=== PATIENT | male | born 1960 | race Caucasian/White ===

== ENCOUNTER 2018-12-22 16:38 | Observation (INO) | payer BC ==
[2018-12-22] MEDS ORDERED: Aspirin 81 MG Tab.Chew ONE (16:49)
[2018-12-22] MEDS ORDERED: Aspirin 81 MG Tab.Chew PO ONE (16:53)
--- NOTE | 2018-12-22 17:09 | EDM.PDOC ---
ED HPI GENERAL MEDICAL PROBLEM - General Chief Complaint: Chest Pain Stated Complaint: Chest pain Time Seen by Provider: 12/22/18 16:47 Source of Information: Reports: Patient History Limitations: Reports: No Limitations - History of Present Illness INITIAL COMMENTS - FREE TEXT/NARRATIVE: Patient is a 58-year-old gentleman who presents to the emergency department this afternoon with complaint of left-sided chest pain. Pain described as pinching sensation is isolated to left chest. Patient states that the pain began Thursday morning and has been intermittent for the last 3 days. Lasts several minutes and then resolves spontaneously. Patient also states that he's been quite depressed lately as he is recently going through a divorce. Hasn't been eating or sleeping well. Patient has a history of hypertension and depression and is on blood pressure medicine and antidepression medication. Patient denies any change in medication recently, or any intent to hurt himself. Patient denies fever, shortness of breath, nausea, vomiting, diarrhea , abdominal pain, any trauma, or out of country travel. Onset: Gradual Onset Date: 12/20/18 Duration: Day(s): Location: Reports: Chest Quality: Reports: Other (Pinching sensation) Severity: Mild Improves with: Reports: Other (Spontaneously) Worsens with: Reports: None Context: Reports: Other (At rest). Denies: Trauma Associated Symptoms: Reports: Chest Pain, Loss of Appetite, Malaise. Denies: Cough, Diaphoresis, Fever/Chills, Headaches, Nausea/Vomiting, Shortness of Breath Left Chest Pain Score (Numeric/FACES): 5 - Related Data Allergies Allergy/AdvReac Type Severity Reaction Status Date / Time No Known Drug Allergies Allergy Other Verified 12/22/18 16:51 Home Meds: Home Meds FLUoxetine HCl [Fluoxetine HCl] 40 mg PO DAILY 10/14/18 [History] Ibuprofen 200 mg PO Q4H PRN 10/14/18 [History] Losartan/Hydrochlorothiazide [Losartan-HCTZ 100-25 MG] 1 tab PO DAILY 10/14/18 [ History] Omeprazole 20 mg PO DAILY 10/14/18 [History] amLODIPine Besylate [Amlodipine Besylate] 5 mg PO DAILY 10/14/18 [History] methylPREDNISolone [Methylprednisolone] 4 mg PO DAILY 12/22/18 [History] oxyCODONE 5 - 10 mg PO Q4H PRN 12/22/18 [History] ED ROS GENERAL - Review of Systems Review Of Systems: ROS reveals no pertinent complaints other than HPI. Constitutional: Reports: No Symptoms HEENT: Reports: No Symptoms Respiratory: Reports: No Symptoms Cardiovascular: Reports: Chest Pain Endocrine: Reports: No Symptoms GI/Abdominal: Reports: No Symptoms : Reports: No Symptoms Musculoskeletal: Reports: No Symptoms Skin: Reports: No Symptoms Neurological: Reports: No Symptoms Psychiatric: Reports: Anxiety, Depression Hematologic/Lymphatic: Reports: No Symptoms Immunologic: Reports: No Symptoms ED EXAM, GENERAL - Physical Exam Exam: See Below Exam Limited By: No Limitations General Appearance: Alert, WD/WN, No Apparent Distress Eye Exam: Bilateral Eye: Normal Inspection Nose: Normal Inspection, Normal Mucosa, No Blood Throat/Mouth: Normal Inspection, Normal Oropharynx, No Airway Compromise Head: Atraumatic, Normocephalic Neck: Normal Inspection, Supple, Non-Tender Respiratory/Chest: No Respiratory Distress, Lungs Clear, Normal Breath Sounds, No Accessory Muscle Use Cardiovascular: No Murmur, Tachycardia GI/Abdominal: Normal Bowel Sounds, Soft, Non-Tender, No Organomegaly, No Distention, No Abnormal Bruit, No Mass Back Exam: Normal Inspection. No: CVA Tenderness (L), CVA Tenderness (R) Extremities: Normal Inspection, Non-Tender, No Pedal Edema Neurological: Alert, Oriented, Normal Cognition Psychiatric: Depressed Mood Skin Exam: Warm, Dry, Intact, Normal Color, No Rash Lymphatic: No Adenopathy EKG INTERPRETATION EKG Date: 12/22/18 Time: 16:50 Rhythm: Other (Sinus tachycardia) Rate (Beats/Min): 104 Angelica: Normal P-Wave: Present QRS: Normal ST-T: Normal QT: Normal Comparison: NA - No Prior EKG Course - Vital Signs Last Recorded V/S: Last Vital Signs Temp 97.8 F 12/22/18 16:42 Pulse 96 12/22/18 18:52 Resp 12 12/22/18 18:52 BP 137/95 H 12/22/18 18:52 Pulse Ox 94 L 12/22/18 18:52 - Orders/Labs/Meds Orders: Active Orders 24 hr Category Date Time Status EKG Documentation Completion [RC] ASDIRECTED Care 12/22/18 16:53 Active Sodium Chloride 0.9% [Saline Flush] Med 12/22/18 18:19 Active 10 ml FLUSH Q8HR PRN Saline Lock Insert [OM.PC] Routine Oth 12/22/18 18:19 Ordered EKG 12 Lead [EK] Routine Ther 12/22/18 17:02 Stop Req Medication Orders Sodium Chloride (Saline Flush) 10 ml FLUSH Q8HR PRN PRN Reason: keep vein open Last Admin: 12/22/18 19:44 Dose: 10 ml Admin: 12/22/18 18:19 Dose: 10 ml Labs: Laboratory Tests 12/22/18 12/22/18 12/22/18 Range/Units 16:50 16:50 16:50 WBC 7.40 (5.00-10.00) 10^3/uL RBC 5.89 (4.50-6.00) 10^6/uL Hgb 16.8 (13.0-17.0) g/dL Hct 47.5 (40.0-52.0) % MCV 80.6 L (82.0-92.0) fL MCH 28.5 (27.0-31.0) pg MCHC 35.4 (32.0-36.0) g/dL RDW 13.2 (11.5-14.5) % Plt Count 292 (150-400) 10^3/uL MPV 9.3 (7.4-10.4) fL Immature Gran % (Auto) 1.2 (0.0-5.0) % Neut % (Auto) 66.6 (50.0-70.0) % Lymph % (Auto) 17.3 L (20.0-40.0) % [place] % (Auto) 10.8 H (2.0-8.0) % Eos % (Auto) 3.2 H (1.0-3.0) % Baso % (Auto) 0.9 (0.0-1.0) % Immature Gran # (Auto) 0.09 (0.00-0.50) 10^3/uL Neut # (Auto) 4.92 (2.50-7.00) 10^3/uL Lymph # (Auto) 1.28 (1.00-4.00) 10^3/uL [place] # (Auto) 0.80 (0.10-0.80) 10^3/uL Eos # (Auto) 0.24 (0.10-0.30) 10^3/uL Baso # (Auto) 0.07 (0.00-0.10) 10^3/uL PT 10.1 (8.9-11.4) SEC INR 1.0 (0.9-1.1) APTT 25.1 (23.1-31.3) SEC D-Dimer, Quantitative < 100 (<400) ng/mL Sodium 138 (136-145) mmol/L Potassium 3.3 (3.3-5.3) mmol/L Chloride 99 (98-115) mmol/L Carbon Dioxide 24.4 (21.0-32.0) mmol/L Anion Gap 17.9 H (5-15) mmol/L BUN 28 H (6-25) mg/dL Creatinine 1.06 (0.51-1.17) mg/dL Est Cr Clr Drug Dosing 93.26 mL/min Estimated GFR (MDRD) > 60 mL/min Glucose 105 H (75 - 99) mg/dL Calcium 9.1 (8.7-10.3) mg/dL Magnesium 2.2 (1.8-2.4) mg/dL Total Bilirubin 0.8 (0.2-1.0) mg/dL AST 21 (15-37) U/L ALT 41 (12-78) U/L Alkaline Phosphatase 89 (46-116) IU/L Troponin I 0.05 (0.00-0.070) ng/mL Total Protein 7.4 (6.4-8.2) g/dL Albumin 4.12 (3.00-4.80) g/dL Lipase 93 (73-393) U/L Meds: Medications Generic Name Dose Route Start Last Admin Trade Name Freq PRN Reason Stop Dose Admin Sodium Chloride 10 ml 12/22/18 18:19 12/22/18 19:44 Saline Flush FLUSH 10 ml Q8HR PRN Administration keep vein open Discontinued Medications Generic Name Dose Route Start Last Admin Trade Name Freq PRN Reason Stop Dose Admin Aspirin Confirm 12/22/18 16:49 12/22/18 16:55 Aspirin Administered 12/22/18 16:50 Not Given Dose 324 mg .ROUTE .STK-MED ONE Aspirin 324 mg 12/22/18 16:53 12/22/18 16:54 Aspirin PO 12/22/18 16:54 324 mg ONETIME ONE Administration Sodium Chloride 100 mls @ 4 mls/sec 12/22/18 18:20 12/22/18 18:57 Normal Saline IV 12/22/18 18:21 4 mls/sec ASDIRECTED ONE Administration Iopamidol 100 ml 12/22/18 18:20 12/22/18 18:57 Isovue-370 (76%) IV 12/22/18 18:21 100 ml ONETIME ONE Administration Lorazepam 1 mg 12/22/18 18:07 12/22/18 18:19 Ativan IVPUSH 12/22/18 18:08 1 mg ONETIME ONE Administration Lorazepam 1 mg 12/22/18 19:29 12/22/18 19:43 Ativan IVPUSH 12/22/18 19:30 1 mg ONETIME ONE Administration - Radiology Interpretation Free Text/Narrative:: The one view chest x-ray shows cardiomegaly and widened mediastinum. CT chest with IV contrast pending - Re-Assessments/Exams Free Text/Narrative Re-Assessment/Exam: 12/22/18 20:44 Patient afebrile, vital signs stable, anxiety, somewhat relieved. Patient denies any intent to hurt himself. Discussed case with Sherie Parks, and she will admit patient for observation and follow. Departure - Departure Time of Disposition: 20:45 Disposition: Refer to Observation Condition: Fair Clinical Impression: Atypical chest pain, Anxiety Depression Qualifiers: Depression Type: unspecified Qualified Code(s): F32.9 - Major depressive disorder, single episode, unspecified Referrals: Celine Nelson MD [Primary Care Provider] - Forms: ED Department Discharge - My Orders Last 24 Hours: My Active Orders 12/22/18 16:53 EKG Documentation Completion [RC] ASDIRECTED 12/22/18 17:02 EKG 12 Lead [EK] Routine 12/22/18 18:19 Sodium Chloride 0.9% [Saline Flush] 10 ml FLUSH Q8HR PRN Saline Lock Insert [OM.PC] Routine - Assessment/Plan Last 24 Hours: My Active Orders 12/22/18 16:53 EKG Documentation Completion [RC] ASDIRECTED 12/22/18 17:02 EKG 12 Lead [EK] Routine 12/22/18 18:19 Sodium Chloride 0.9% [Saline Flush] 10 ml FLUSH Q8HR PRN Saline Lock Insert [OM.PC] Routine Assessment:: Anxiety, chest pain Plan: Admit for observation to [place]
[2018-12-22 17:34] LABS: ANION GAP 17.9 mmol/L (5-15); CHLORIDE,CL 99 mmol/L (98-115); SODIUM,NA 138 mmol/L (136-145)
[2018-12-22] MEDS ORDERED: LORazepam 2 MG/ML SDV IVPUSH ONE ×2 (18:07→19:29)
--- NOTE | 2018-12-22 18:13 | CR ---
[id number] RAD/RAD Chest PA or AP 1V EXAM: SINGLE VIEW CHEST. INDICATION: CHEST PAIN COMPARISON: NO PREVIOUS SIMILAR EXAM IS AVAILABLE FINDINGS: The mediastinum appears somewhat prominent. Consider a CT chest with IV contrast or even PA and lateral chest if symptoms persist. The lungs are clear and somewhat hyperaerated. The cardiac silhouette is prominent. IMPRESSION: QUESTION OF THORACIC AORTIC PATHOLOGY. CONSIDER CT CHEST WITH IV CONTRAST. APPEARANCE OF AIRWAY DISEASE. BORDERLINE CARDIOMEGALY. Rupert Catalan MD 12/22/18 1785 Thank you for allowing us to participate in the care of your patient.
[2018-12-22] MEDS: Sodium Chloride 0.9% 10 ML Syringe FLUSH PRN ×2 (18:19→19:44)
[2018-12-22] MEDS ORDERED: Sodium Chloride 0.9% 100 ML IV ONE (18:20)
[2018-12-22] MEDS ORDERED: Iopamidol 755 Mg/ML 100 ML Bottle IV ONE (18:20)
--- NOTE | 2018-12-22 20:34 | CT ---
[id number] CT/CTA Chest EXAM: CT ANGIOGRAM CHEST INDICATION: THORACIC AORTIC PATHOLOGY COMPARISON: None. DISCUSSION: The pulmonary arteries are normal in appearance with no emboli identified. There are a few scattered calcified and noncalcified pulmonary nodules scattered throughout the lungs. For example there is a 4 mm noncalcified pulmonary nodule right upper lobe (series 3 image 75). Additionally there is a 4 mm noncalcified pulmonary nodule along the major fissure within the right lower lobe (series 3 image 64). A few additional less than 3 mm pulmonary nodules are seen. No airspace consolidation. No pleural pericardial effusion. The heart is borderline enlarged. Coronary artery disease. No mediastinal or hilar lymphadenopathy. Generalized hypodensity liver consistent with hepatic steatosis. IMPRESSION: 1. No evidence of acute pulmonary embolism. Brian Ratliff DO 12/22/18 2033 Thank you for allowing us to participate in the care of your patient.
[2018-12-22] MEDS ORDERED: Melatonin 3 MG Tab PO PRN (22:20)
[2018-12-22] MEDS: oxyCODONE 5 MG Tab PO PRN (22:36)
[2018-12-23] MEDS ORDERED: LORazepam 0.5 MG Tab PO PRN (01:06)
[2018-12-23] MEDS: oxyCODONE 5 MG Tab PO PRN ×2 (02:54→07:34)
[2018-12-23] MEDS ORDERED: Hydrochlorothiazide 25 MG Tab PO SCH (09:00)
[2018-12-23] MEDS ORDERED: Ibuprofen 200 MG Tab PO PRN (09:38)
[2018-12-23] MEDS ORDERED: oxyCODONE 5 MG Tab PO PRN (09:38)
[2018-12-23] MEDS ORDERED: Losartan 50 MG Tab PO SCH (09:45)
[2018-12-23] MEDS ORDERED: amLODIPine 5 MG Tab PO SCH (09:45)
[2018-12-23] MEDS ORDERED: FLUoxetine 10 MG Cap PO SCH (09:45)
[2018-12-23] MEDS ORDERED: Omeprazole 20 MG Cap.CR PO SCH (09:45)
--- NOTE | 2018-12-23 10:08 | PCM.HP ---
H&P History of Present Illness - General Date of Service: 12/23/18 Admit Problem/Dx: Admission Diagnosis/Problem Admission Diagnosis/Problem Atypical chest pain Source of Information: Patient, Old Records, RN History Limitations: Reports: No Limitations Left Chest Pain Score (Numeric/FACES): 0 Left Knee Pain Score (Numeric/FACES): 7 - Related Data Allergies/Adverse Reactions: Allergies Allergy/AdvReac Type Severity Reaction Status Date / Time No Known Drug Allergies Allergy Other Verified 12/22/18 16:51 Home Medications: Home Meds Ibuprofen 200 mg PO Q4H PRN 10/14/18 [History] Losartan/Hydrochlorothiazide [Losartan-HCTZ 100-25 MG] 1 tab PO DAILY 10/14/18 [ History] Omeprazole 20 mg PO DAILY 10/14/18 [History] amLODIPine Besylate [Amlodipine Besylate] 5 mg PO DAILY 10/14/18 [History] FLUoxetine HCl [Fluoxetine HCl] 40 mg PO DAILY #30 capsule 12/23/18 [Rx] Hydrocodone/Acetaminophen [Hydrocodon-Acetaminophen 5-325] 1 - 2 each PO Q6H # 24 tablet 12/23/18 [Rx] LORazepam [Ativan] 0.5 mg PO Q8H PRN #30 tablet 12/23/18 [Rx] Past Medical History HEENT History: Reports: Impaired Vision Cardiovascular History: Reports: Hypertension Respiratory History: Reports: Sleep Apnea Gastrointestinal History: Reports: None Genitourinary History: Reports: None Musculoskeletal History: Reports: Fracture, Gout Neurological History: Reports: None Psychiatric History: Reports: Anxiety, Depression, Panic Attack Endocrine/Metabolic History: Reports: None Hematologic History: Reports: None Dermatologic History: Reports: None - Infectious Disease History Infectious Disease History: Reports: Chicken Pox, Influenza, Mumps, Shingles - Past Surgical History HEENT Surgical History: Reports: LASIK, Tonsillectomy Cardiovascular Surgical History: Reports: None Respiratory Surgical History: Reports: None GI Surgical History: Reports: Colonoscopy Male Surgical History: Reports: None Endocrine Surgical History: Reports: None Neurological Surgical History: Reports: None Musculoskeletal Surgical History: Reports: Shoulder Surgery Dermatological Surgical History: Reports: None Social & Family History - Family History Cardiac: Reports: None Respiratory: Reports: None GI: Reports: None : Reports: None OBGYN: Reports: None Musculoskeletal: Reports: None Neurological: Reports: Alzheimers Disease (Father ) Psychiatric: Reports: None Endocrine/Metabolic: Reports: None Immunologic: Reports: None Dermatologic: Reports: None Oncologic: Reports: Breast (Mother currently alive, breast cancer) - Tobacco Use Smoking Status *Q: Never Smoker Years of Tobacco use: 6 Packs/Tins Daily: 0.1 Second Hand Smoke Exposure: No - Caffeine Use Caffeine Use: Reports: None - Recreational Drug Use Recreational Drug Use: No H&P Review of Systems - Review of Systems: Review Of Systems: See Below General: Reports: No Symptoms HEENT: Reports: No Symptoms Pulmonary: Reports: No Symptoms Cardiovascular: Reports: Chest Pain. Denies: Palpitations, Lightheadedness, Blood Pressure Problem Gastrointestinal: Reports: Decreased Appetite. Denies: Abdominal Pain, Constipation, Diarrhea Genitourinary: Reports: No Symptoms Musculoskeletal: Reports: Joint Pain, Other (Going left knee pain) Skin: Reports: No Symptoms Psychiatric: Reports: Depression, Mood Lability, Anxiety. Denies: Confusion, Agitation, Suicidal Ideation, Homicidal Ideation Neurological: Reports: Difficulty Walking (Left knee pain due to injury chondral defect). Denies: Confusion Hematologic/Lymphatic: Reports: No Symptoms Immunologic: Reports: No Symptoms Exam - Exam Exam: See Below - Vital Signs Vital Signs: Last Vital Signs Temp 98.6 F 12/23/18 06:25 Pulse 87 12/23/18 06:25 Resp 18 12/23/18 06:25 BP 126/92 H 12/23/18 06:25 Pulse Ox 95 12/23/18 07:00 Weight: 225 lb - Exam Quality Assessment: No: Supplemental Oxygen General: Alert, Oriented. No: Mild Distress, Moderate Distress Neck: Supple Lungs: Clear to Auscultation, Normal Respiratory Effort Cardiovascular: Regular Rate, Regular Rhythm, Normal S1, Normal S2 GI/Abdominal Exam: Soft (Male) Exam: Deferred Rectal (Males) Exam: Deferred Extremities: No: Pedal Edema Peripheral Pulses: 2+: Radial (L), Radial (R) Skin: Warm, Dry, Intact Neurological: Normal Speech, Sensation Intact Neuro Extensive - Mental Status: Alert, Oriented x3, Memory Intact. No: Normal Mood/Affect (Flat affect) Neuro Extensive - Motor, Sensory, Reflexes: CN II-XII Intact Psychiatric: Depressed. No: Agitated, Suicidal Ideation, Homicidal Ideation - Patient Data Lab Results Last 24 hrs: Laboratory Results - last 24 hr 12/22/18 12/22/18 12/22/18 Range/Units 16:50 16:50 16:50 WBC 7.40 (5.00-10.00) 10^3/uL RBC 5.89 (4.50-6.00) 10^6/uL Hgb 16.8 (13.0-17.0) g/dL Hct 47.5 (40.0-52.0) % MCV 80.6 L (82.0-92.0) fL MCH 28.5 (27.0-31.0) pg MCHC 35.4 (32.0-36.0) g/dL RDW 13.2 (11.5-14.5) % Plt Count 292 (150-400) 10^3/uL MPV 9.3 (7.4-10.4) fL Immature Gran % (Auto) 1.2 (0.0-5.0) % Neut % (Auto) 66.6 (50.0-70.0) % Lymph % (Auto) 17.3 L (20.0-40.0) % [place] % (Auto) 10.8 H (2.0-8.0) % Eos % (Auto) 3.2 H (1.0-3.0) % Baso % (Auto) 0.9 (0.0-1.0) % Immature Gran # (Auto) 0.09 (0.00-0.50) 10^3/uL Neut # (Auto) 4.92 (2.50-7.00) 10^3/uL Lymph # (Auto) 1.28 (1.00-4.00) 10^3/uL [place] # (Auto) 0.80 (0.10-0.80) 10^3/uL Eos # (Auto) 0.24 (0.10-0.30) 10^3/uL Baso # (Auto) 0.07 (0.00-0.10) 10^3/uL PT 10.1 (8.9-11.4) SEC INR 1.0 (0.9-1.1) APTT 25.1 (23.1-31.3) SEC D-Dimer, Quantitative < 100 (<400) ng/mL Sodium 138 (136-145) mmol/L Potassium 3.3 (3.3-5.3) mmol/L Chloride 99 (98-115) mmol/L Carbon Dioxide 24.4 (21.0-32.0) mmol/L Anion Gap 17.9 H (5-15) mmol/L BUN 28 H (6-25) mg/dL Creatinine 1.06 (0.51-1.17) mg/dL Est Cr Clr Drug Dosing 93.26 mL/min Estimated GFR (MDRD) > 60 mL/min Glucose 105 H (75 - 99) mg/dL Calcium 9.1 (8.7-10.3) mg/dL Magnesium 2.2 (1.8-2.4) mg/dL Total Bilirubin 0.8 (0.2-1.0) mg/dL AST 21 (15-37) U/L ALT 41 (12-78) U/L Alkaline Phosphatase 89 (46-116) IU/L Troponin I 0.05 (0.00-0.070) ng/mL Total Protein 7.4 (6.4-8.2) g/dL Albumin 4.12 (3.00-4.80) g/dL Lipase 93 (73-393) U/L Result Diagrams: 12/22/18 16:50 12/22/18 16:50 Problem List Initiated/Reviewed/Updated: Yes Orders Last 24hrs: Active Orders 24 hr Category Date Time Status Patient Status [ADT] Routine ADT 12/22/18 20:47 Ordered Cardiac Monitoring [RC] 1900,2300,0300,0700,1100,1500 Care 12/22/18 21:00 Active EKG Documentation Completion [RC] ASDIRECTED Care 12/22/18 16:53 Active Oxygen Therapy [RC] .PRN Care 12/22/18 20:47 Active VTE/DVT Education [RC] PER UNIT ROUTINE Care 12/22/18 20:47 Active Vital Signs [RC] 0700,1100,1500,1900,2300,0300 Care 12/22/18 20:47 Active Regular Diet [DIET] Diet 12/23/18 Breakfast Active FLUoxetine [PROzac] Med 12/23/18 09:45 Active 40 mg PO DAILY Ibuprofen [Motrin] Med 12/23/18 09:38 Active 200 mg PO Q4H PRN LORazepam [Ativan] Med 12/23/18 01:06 Active 0.5 mg PO Q6H PRN Losartan [Cozaar] Med 12/23/18 09:45 Active 100 mg PO DAILY Melatonin Med 12/23/18 21:00 Active 3 mg PO BEDTIME Melatonin Med 12/22/18 22:20 Active 3 mg PO BEDTIME PRN Omeprazole Med 12/23/18 09:45 Active 20 mg PO DAILY Sodium Chloride 0.9% [Saline Flush] Med 12/22/18 18:19 Active 10 ml FLUSH Q8HR PRN amLODIPine [Norvasc] Med 12/23/18 09:45 Active 5 mg PO DAILY hydroCHLOROthiazide Med 12/23/18 09:00 Active 25 mg PO DAILY oxyCODONE Med 12/22/18 22:23 Active 5 mg PO Q4H PRN oxyCODONE Med 12/23/18 09:38 Active 5 mg PO Q4H PRN Saline Lock Insert [OM.PC] Routine Oth 12/22/18 18:19 Ordered Resuscitation Status Routine Resus Stat 12/22/18 20:47 Ordered EKG 12 Lead [EK] Routine Ther 12/22/18 17:02 Stop Req Medication Orders Amlodipine Besylate (Norvasc) 5 mg PO DAILY BRANDIN Fluoxetine HCl (Prozac) 40 mg PO DAILY BRANDIN Hydrochlorothiazide (Hydrochlorothiazide) 25 mg PO DAILY BRANDIN Ibuprofen (Motrin) 200 mg PO Q4H PRN PRN Reason: Other Lorazepam (Ativan) 0.5 mg PO Q6H PRN PRN Reason: Anxiety Last Admin: 12/23/18 06:07 Dose: 0.5 mg Losartan Potassium (Cozaar) 100 mg PO DAILY BRANDIN Melatonin (Melatonin) 3 mg PO BEDTIME BRANDIN Melatonin (Melatonin) 3 mg PO BEDTIME PRN PRN Reason: Sleep Last Admin: 12/22/18 22:35 Dose: 3 mg Omeprazole (Omeprazole) 20 mg PO DAILY BRANDIN Oxycodone HCl (Oxycodone) 5 mg PO Q4H PRN PRN Reason: Pain (moderate 4-6) Last Admin: 12/23/18 07:34 Dose: 5 mg Admin: 12/23/18 02:54 Dose: 5 mg Admin: 12/22/18 22:36 Dose: 5 mg Oxycodone HCl (Oxycodone) 5 mg PO Q4H PRN PRN Reason: Pain Sodium Chloride (Saline Flush) 10 ml FLUSH Q8HR PRN PRN Reason: keep vein open Last Admin: 12/22/18 19:44 Dose: 10 ml Admin: 12/22/18 18:19 Dose: 10 ml Assessment/Plan Comment:: Please use this history and physical also for a discharge summary as the patient will be discharged same-day as H&P History of present illness Roberto is a 58-year-old gentleman who was admitted into observation due to chest pain and anxiety. He was seen and evaluated last night through the ED when he was brought in by a friend complaining of 2-3 day left-sided intermittent pinching sensation in his left chest area that would wax and wane for several minutes and then would resolve spontaneously. No change in pain or sensation regarding position and/or exertion. Patient contributes this to significant anxiety as marital discourse with recent divorce. States approximately 2 months ago he was placed on Prozac and admits to significant improvements in his anxiety up until recently. He does have hypertension and is currently on Norvasc ARB and HCTZ. Roberto is known to me from recent office visit due to left knee injury with subsequent MRI demonstrating chondral defect injury and is awaiting orthopedic appointment. I had placed him in us knee immobilizer, crutches with opioid therapy for pain. Pertinent ED findings Troponin negative, Electrolytes normal EKG sinus tach, Chest x-ray, cardiomegaly with widened mediastinum Chest CT, unremarkable Final diagnosis Anxiety, acute on chronic R/O ACS, this has been ruled out, Hypertension, stable Left knee chondral defect, orthopedic appointment pending Hospital course [place] and uneventful, reviewed telemetry from overnight without any concerns, ruled out for ACS, patient felt much improved the morning on rounds however long discussion regarding stressful and family discourse with ongoing family stressors and the need for counseling. Patient does have referrals for counseling in which he does plan on attending. Patient not has ongoing left knee pain. He has good social support. Medication changes/adjustments upon discharge Changed from oxycodone to hydrocodone Ativan 0.5 mg by mouth every 8 hours when necessary (newly added, limiting dose) Continue Prozac no dosage change at this time. Follow-up/referrals Follow Dr. Malgorzata Bella next week Orthopedic appointment scheduled for next month Counseling appointment with Teena Amado If ongoing pain, any more knee effusion he will have to seek orthopedic walk-in clinic as I will not refill his hydrocodone ACS has been ruled out via biomarkers and EKG, low probability of CAD or flow limiting disease since patient has low test probability doubtful any further testing would be of utility --likely chest pain is related to ongoing stress/ anxiety
[2018-12-23] MEDS ORDERED: Melatonin 3 MG Tab PO SCH (21:00)
== END 2018-12-23 11:05 | disposition home or self-care (01) ==
LOC: KA.ED 16:38 → KA.MS 20:47
PROVIDERS: ADMIT Physician Assistant Surgical; ATTEND Family Medicine
DX: R07.89 Other chest pain (principal); I10 Essential (primary) hypertension; F41.9 Anxiety disorder, unspecified; F32.9 Major depressive disorder, single episode, unspecified; Z79.52 Long term (current) use of systemic steroids; Z79.899 Other long term (current) drug therapy
CPT/HCPCS: 36415; 71045; 71260; 80053; 83690; 83735; 84484; 85025; 85379; 85610; 85730; 93005; 96374; 96376; 99285-25; A9270-GY; G0378; J2060; J7050; Q9967